=== PATIENT | female | born 1950 | race Caucasian/White ===

== ENCOUNTER 2018-08-13 11:00 | Day surgery (SDC) | payer MEDICARE, OTHER, MEDICAID ==
[2018-08-13] MEDS ORDERED: LIDOCAINE 100 MG SYRINGE (12:16)
[2018-08-13] MEDS ORDERED: PROPOFOL 20 ML (12:16)
[2018-08-13] MEDS ORDERED: FENTAnyl 50 MCG/ML VIAL (13:17)
[2018-08-13] MEDS ORDERED: PROPOFOL 40 ML (13:17)
[2018-08-13] MEDS ORDERED: METOPROLOL 5 MG INJ (13:17)
== END 2018-08-13 16:06 | disposition home or self-care (01) ==
LOC: GIL 11:00
DX: R19.4 Change in bowel habit (principal); K57.30 Diverticulosis of large intestine without perforation or abscess without bleeding; K44.9 Diaphragmatic hernia without obstruction or gangrene; K29.50 Unspecified chronic gastritis without bleeding
CPT/HCPCS: 43239; 88305; 88312